=== PATIENT | male | born 1975 | race Native Hawaiian/Other Pacific Islander ===

== ENCOUNTER → 2018-05-28 | Outpatient (CLI) | payer BC, OTHER ==
[~2018-05-28] VITALS: Ht 165.1 cm; Wt 76.2 kg
[~2018-05-28] MED LIST: ASPIR 8181 MG PO; ATORVASTATIN CA40 MG PO; CHANTIX0.5 MG PO; LISINOPRIL10 MG PO; METFORMIN HCL500 MG PO; NORCO 5-325 TA1 EACH PO; PLAVIX 75 MG TA75 M1 PO
[2018-05-28 08:05] VITALS: BP 159/91
--- NOTE | 2018-05-28 13:47 | NUR ---
DR. Corral notified of pt BP. Ordred hydralazine 10 mg iv.
--- NOTE | 2018-05-28 15:02 | NUR ---
pt ambulated to restroom without difficulty. right groin remains stable
== END | disposition home or self-care (01) ==
LOC: SPEC 07:03
DX: I70.212 Atherosclerosis of native arteries of extremities with intermittent claudication, left leg (principal); I70.1 Atherosclerosis of renal artery; I10 Essential (primary) hypertension; I25.10 Atherosclerotic heart disease of native coronary artery without angina pectoris; E78.00 Pure hypercholesterolemia, unspecified; E11.9 Type 2 diabetes mellitus without complications; E78.5 Hyperlipidemia, unspecified; F17.210 Nicotine dependence, cigarettes, uncomplicated; Z79.4 Long term (current) use of insulin; Z79.899 Other long term (current) drug therapy; Z79.82 Long term (current) use of aspirin; Z98.890 Other specified postprocedural states

== ENCOUNTER → 2018-06-02 | Outpatient (CLI) | payer BC, OTHER ==
[~2018-06-02] VITALS: Ht 165.1 cm; Wt 74.8 kg
[2018-06-02 08:14] VITALS: BP 145/91
--- NOTE | 2018-06-02 08:53 | NUR ---
Notified Dr. Corral of left hip and back pain interferring with pt ability to walk. He will address.
--- NOTE | 2018-06-02 14:42 | NUR ---
Pt ambulated in hallway to restroom without difficulty. Left groin remains stable.
== END | disposition home or self-care (01) ==
LOC: SPEC 07:05
DX: I70.211 Atherosclerosis of native arteries of extremities with intermittent claudication, right leg (principal); I10 Essential (primary) hypertension; E78.00 Pure hypercholesterolemia, unspecified; E11.9 Type 2 diabetes mellitus without complications; F17.200 Nicotine dependence, unspecified, uncomplicated; Z79.4 Long term (current) use of insulin; Z98.890 Other specified postprocedural states; Z79.899 Other long term (current) drug therapy; Z79.82 Long term (current) use of aspirin; Z79.891 Long term (current) use of opiate analgesic

== ENCOUNTER 2018-12-28 04:46 | Inpatient (IN) | payer BC, OTHER ==
[2018-12-28] VITALS (14 sets, daily range): BP systolic 100–143; BP diastolic 69–88
[~2018-12-28] VITALS: Ht 165.1 cm; Wt 82.8 kg
[2018-12-28] MEDS ORDERED: XULTOPHY 100 UNI3 ML SUBQ (04:55)
[2018-12-28 05:25] LABS: ABSOLUTE NEUTROPHILS 6.9 thou/uL (1.4-8.2); BASOPHILS 1.2 % (0.0-2.0); EOSINOPHILS 3.6 % (0.0-3.0); HEMATOCRIT 39.4 % (42.0-52.0); HEMOGLOBIN 13.5 gm/dL (14.0-18.0); LYMPHOCYTES 23.4 % (24.0-44.0); MCH 31.8 pg (26.0-34.0); MCHC 34.3 g/dL (28.0-37.0); MCV 92.6 fL (80.0-100.0); MONOCYTES 7.4 % (1.0-8.0); PLATELET COUNT 294 thou/uL (150-400); POLYS 64.4 % (36.0-66.0); RBC 4.25 mil/uL (4.50-6.00); RDW 13.9 % (10.5-14.5); WBC 10.8 thou/uL (4.0-11.0)
[2018-12-28 05:27] LABS: CALCIUM 8.3 mg/dL (8.5-10.1); CREATININE 1.5 mg/dL (0.7-1.3); POTASSIUM 4.1 mmol/L (3.5-5.1)
[2018-12-28 05:38] LABS: TROPONIN-I 7.11 ng/mL (<0.06)
[2018-12-28 06:27] LABS: PROTIME 9.8 Seconds (9.3-11.4)
--- NOTE | 2018-12-28 09:03 | EKG ---
[place] [address] [facility] [place] [address] ELECTROCARDIOGRAM REPORT Name: MIN KELLY Room #: 208-P ADM IN M.R.#: [id number] Admission: 12/28/18 Attend Phys: Morro Carlson MD Discharge: Date of : 71 Report #: [id number] THIS REPORT FOR: //name// [facility] ED Test Date: 2018-12-28 Test Time: 04:49:41 Pat Name: MIN KELLY Department: Room: 208 Gender: M Clinical Rehab Specialist: YOVANA : 1975 Requested By: Weston Kumari Order Number: [id number] MD: Raz Martinez Measurements Intervals [place] Rate: 102 P: 69 AR: 151 QRS: 113 QRSD: 116 T: -25 QT: 369 QTc: 481 Interpretive Statements Sinus tachycardia Left posterior fascicular block Poor R wave progression Nonspecific ST and T wave abnormality No previous ECG available for comparison Electronically Signed On 12-28-2018 9:03:22 CDT by Raz Martinez [email or web address] <ELECTRONICALLY SIGNED> By: Raz Martinez MD, [facility] 12/28/18 0903 0449 0449 Raz Martinez MD, [facility] /EPI
--- NOTE | 2018-12-28 09:04 | EKG ---
[place] [address] [facility] [place] [address] ELECTROCARDIOGRAM REPORT Name: MIN KELLY Room #: 208-P ADM IN M.R.#: [id number] Admission: 12/28/18 Attend Phys: Morro Carlson MD Discharge: Date of : 71 Report #: [id number] THIS REPORT FOR: //name// [facility] ED Test Date: 2018-12-28 Test Time: 05:48:09 Pat Name: MIN KELLY Department: Room: 208 Gender: M Nuclear Medicine Officer: YOVANA : 1975 Requested By: Weston Kumari Order Number: [id number] MD: Raz Martinez Measurements Intervals [place] Rate: 88 P: 69 NC: 158 QRS: 111 QRSD: 111 T: 8 QT: 389 QTc: 471 Interpretive Statements Sinus rhythm Left posterior fascicular block Borderline repolarization abnormality No previous ECG available for comparison Electronically Signed On 12-28-2018 9:04:11 CDT by Raz Martinez [email or web address] <ELECTRONICALLY SIGNED> By: Raz Martinez MD, [facility] 12/28/18 0904 0548 Raz Martinez MD, [facility] /EPI
[2018-12-28 10:02] LABS: CHOLESTEROL 124 mg/dL (<200); HDL CHOLESTEROL 35 mg/dL (>40); LDL CHOLESTEROL 70 mg/dL (<100); TC:HDL 3.5 Ratio (Not establshd); TRIGLYCERIDE 95 mg/dL (<150); VLDL 19 mg/dL (<40)
--- NOTE | 2018-12-28 11:02 | NUR ---
40mg atorvastatin given. unable to scan med.
--- NOTE | 2018-12-28 15:40 | NUR ---
ASSUMED CARE OF PT AT 0800 THIS SHIFT. PT HAS BEEN COOPERATIVE, HAS HAD SOME CHEST PAIN THIS SHIFT. PT WENT TO DEHYDROGENATION CONVERTER OPERATOR THIS MORNING SHORTLY AFTER ARRIVAL ON UNIT. PT IS NOW BACK FROM DEHYDROGENATION CONVERTER OPERATOR, COOPERATING WITH BEDREST AND POST CATH VITALS. PT HAD 2 STENTS PLACED, HOWEVER WILL STILL NEED TO HAVE CABG SURGERY. PT HAD A HEADACHE AFTER COMING BACK FROM DEHYDROGENATION CONVERTER OPERATOR, ACETAMENOPHEN ORDERED. PT IS CURRENTLY RESTING COMFORTABLY IN ROOM. PLAN OF CARE IS TO CONTINUE TO MONITOR CLOSELY AT THIS TIME.
--- NOTE | 2018-12-28 15:51 | 2DMMODE ---
[facility] [address] [place] [address] 2 D/M-MODE ECHOCARDIOGRAM Name: MIN KELLY NEGRO Room #: 208-P ADM IN M.R.#: [id number] Admission: 12/28/18 Attend Phys: Klever Fitzpatrick Discharge: Date of : 71 Report #: [id number] THIS REPORT FOR: //name// APPROVED REPORT Study performed: 12/28/2018 13:31:35 EXAM: Comprehensive 2D, Doppler, and color-flow Echocardiogram Patient Location: Bedside Room #: 208 Status: routine BSA: 1.82 HR: 80 bpm BP: 119/71 mmHg Rhythm: NSR Other Information Study Quality: Technically Limited Technically limited study due to inability to position patient, post cath. Indications Diabetes Non STEMI Hypertension/HDD 2D Dimensions IVSd: 11.54 (7-11mm) LVOT Diam: 23.98 (18-24mm) LVDd: 54.90 mm PWd: 10.76 (7-11mm) Ascending Ao: 29.50 (22-36mm) LVDs: 50.10 (25-40mm) Aortic Root: 33.91 mm Volumes Left Atrial Volume (Systole) Single Plane 4CH: 37.24 mL Single Plane 2CH: 53.16 mL LA ESV Index: 27.00 mL/m2 Aortic Valve AoV Peak Winston.: 0.75 m/s AO Peak Gr.: 2.25 mmHg LVOT Max P.76 mmHg LVOT Max V: 0.43 m/s LAY Vmax: 2.[address] [facility] [address] [place] [address] 2 D/M-MODE ECHOCARDIOGRAM Name: ROBINMIN NEGRO Room #: 208-P [facility] IN [facility].#: [id number] Admission: 12/28/18 Attend Phys: Klever Fitzpatrick Discharge: Date of : 71 Report #: [id number] E/A Ratio: 1.7 MV Decel. Time: 119.60 ms MV E Max Winston.: 0.85 m/s MV A Winston.: 0.50 m/s MV PHT: 34.68 ms IVRT: 110.73 ms Pulmonary Valve PV Peak Winston.: 0.61 m/s PV Peak Gr.: 1.48 mmHg Tricuspid Valve TR Peak Winston.: 2.84 m/s RAP Estimate: 5.00 mmHg TR Peak Gr.: 32.23 mmHg PA Pressure: 37.00 mmHg Left Ventricle Left ventricle is at the upper limits of normal. Regional wall motion abnormalities are noted. Borderline concentric left ventricular hypertrophy. Left ventricular systolic function is severely decreased. LVEF is 25-30%.inf wall akinetic Right Ventricle Right ventricle appears grossly normal in size. Right ventricular systolic function is grossly normal. Atria The left atrium size is normal. Aortic Valve The aortic valve is normal in structure. No aortic regurgitation is present. There is no aortic valvular stenosis. Mitral Valve The mitral valve is normal in structure. Mild mitral regurgitation. No evidence of mitral valve stenosis. Tricuspid Valve The tricuspid valve is normal in structure. There is no tricuspid valve regurgitation noted. Pulmonic Valve The pulmonary valve is normal in structure. Trace pulmonic regurgitation. Great Vessels The aortic root is normal in size. IVC is normal in size and [facility] [address] [place] [address] 2 D/M-MODE ECHOCARDIOGRAM Name: MIN KELLY NEGRO Room #: 208- ADM IN M.R.#: [id number] Admission: 12/28/18 Attend Phys: Klever Fitzpatrick Discharge: Date of : 71 Report #: [id number] collapses >50% with inspiration. Pericardium There is no pericardial effusion. <Conclusion> Left ventricle is at the upper limits of normal. Borderline concentric left ventricular hypertrophy. LVEF is 25-30%.inf wall akinetic Right ventricle appears grossly normal in size. The left atrium size is normal. The aortic valve is normal in structure. Mild mitral regurgitation. There is no tricuspid valve regurgitation noted. The aortic root is normal in size. There is no pericardial effusion. <ELECTRONICALLY SIGNED> By: Arun Cortez MD, [facility] 12/28/18 1551 155 1551 Arun Cortez MD, [facility]ACC /INF
[2018-12-29 04:00] VITALS: BP 97/68
[2018-12-29 05:09] LABS: HEMOGLOBIN 12.6 gm/dL (14.0-18.0); MCH 31.2 pg (26.0-34.0); MCHC 33.2 g/dL (28.0-37.0); MCV 93.9 fL (80.0-100.0); RBC 4.04 mil/uL (4.50-6.00); WBC 10.4 thou/uL (4.0-11.0)
--- NOTE | 2018-12-29 05:17 | NUR ---
RECEIVED PT'S CARE AT AROUND 1910; PT. ON BED; AOX4; RELATIVE AT THE BED SIDE; DURING ASSESSMENT C/O CP; 04/02; HEADACHE; 04/02; PRN MEDICATION GIVEN; HS MEDICATION GIVEN; EDUCATED ABOUT THE IMPORTANCE OF SCDs; ST. UNDERSTANDING; REFUSED IT; AROUND 0 PT. C/O INCREASE CP (07/01) & HEADACHE (07/01); EDUCATED ABOUT MEDICATION GTT & SIDE EFFECTS; VS WNL; INCREASE NITROGLICERYN GTT; C/O INCREASE HEADACHE; DECREASE GTT TO 5 MCG/MIN; ST. DECREASE CP; INCREASE HEADACHE; ST. PRN PAIN MEDICATION DID NOT DECREASE HEADACHE; ASKED ABOUT CAFFEINE INTAKE; PT. ST TO DRINK 8 CUPS OF COFFEE PER DAY; MECHANICAL ADJUSTER NOTIFIED; ORDERS RECEIVED; COFFEE PROVIDED; DURING ROUNDINGS PT. RESTING WITH EYES CLOSED; THROUGH THE NIGHT R. SIDE GROIN D/C/I; NO C/O PAIN; EARLY ON THE MORNING NOTICED ON EMAR FUROSEMIDE PRESCRIBED WHILE NS RUNNING AT 100 ML/H; MECHANICAL ADJUSTER NOTIFIED; ORDERS RECEIVED; NS D/C; MONITORING; ASSESSMENT CHARGED; FOLLOWING POC; WILL PASS ON REPORT.
[2018-12-29 05:27] LABS: ALBUMIN 2.8 g/dL (3.4-5.0); CREATININE 1.5 mg/dL (0.7-1.3); TOTAL BILIRUBIN 0.6 mg/dL (<0.1-1.0)
[2018-12-29 05:33] LABS: TROPONIN-I 50.23 ng/mL (<0.06)
[2018-12-29 06:19] VITALS: BP 106/70
--- NOTE | 2018-12-29 07:58 | EKG ---
[place] [address] [facility] [place] [address] ELECTROCARDIOGRAM REPORT Name: MIN KELLY Room #: 211-P ADM IN M.R.#: [id number] Admission: 12/28/18 Attend Phys: Klever Yao Discharge: Date of : 71 Report #: [id number] THIS REPORT FOR: //name// [facility] Test Date: 2018-12-28 Test Time: 16:23:49 Pat Name: MIN KELLY Department: Room: 211 Gender: M Junior Paralegal: Heather WILCOX : 1975 Requested By: Arun Cortez Order Number: [id number] MD: Raz Martinez Measurements Intervals [place] Rate: 86 P: 57 IN: 151 QRS: 108 QRSD: 113 T: 77 QT: 385 QTc: 461 Interpretive Statements Sinus rhythm Left posterior fascicular block Inferior infarct, acute (RCA) Compared to ECG 12/28/2018 05:48:09 Myocardial infarct finding now present Electronically Signed On 12-29-2018 7:58:03 CDT by Raz Martinez [email or web address] <ELECTRONICALLY SIGNED> By: Raz Martinez MD, [facility] 12/29/18 0758 1623 1623 Raz Martinez MD, [facility] /EPI
--- NOTE | 2018-12-29 08:05 | EKG ---
[place] [address] [facility] [place] [address] ELECTROCARDIOGRAM REPORT Name: MIN KELLY Room #: 211-P ADM IN M.R.#: [id number] Admission: 12/28/18 Attend Phys: Klever Yao Discharge: Date of : 71 Report #: [id number] THIS REPORT FOR: //name// [facility] Test Date: 2018-12-29 Test Time: 07:47:18 Pat Name: MIN KELLY Department: Room: 211 P Gender: M Medical Equipment Repair Technician: celena : 1975 Requested By: Arun Cortez Order Number: [id number] MD: Raz Martinez Measurements Intervals [place] Rate: 82 P: 54 MI: 154 QRS: 118 QRSD: 115 T: 100 QT: 409 QTc: 478 Interpretive Statements Sinus rhythm Rightward axis Minimal inferior repolarization abnormality Compared to ECG 12/28/2018 05:48:[address] elevation is less pronounced Electronically Signed On 12-29-2018 8:05:35 CDT by Raz Martinez [email or web address] <ELECTRONICALLY SIGNED> By: Raz Martinez MD, [facility] 10/11/09 804 6 Raz Martinez MD, [facility] /EPI
[2018-12-29 08:09] VITALS: BP 115/78
[2018-12-29 12:34] VITALS: BP 94/65
[2018-12-29 15:35] LABS: URINE BILIRUBIN NEGATIVE (Negative); URINE BLOOD NEGATIVE (Negative); URINE CLARITY CLEAR; URINE COLOR YELLOW; URINE GLUCOSE-RANDOM* 3+ (Negative); URINE KETONES NEGATIVE (Negative); URINE LEUKOCYTES-REFLEX NEGATIVE (Negative); URINE NITRITE-REFLEX NEGATIVE (Negative); URINE PROTEIN (DIPSTICK) TRACE (Negative); URINE SPECIFIC GRAVITY 1.015 (1.005-1.035); URINE UROBILINOGEN 0.2 E.U./dl (0.2-1.0)
[2018-12-29 15:59] VITALS: BP 105/59
--- NOTE | 2018-12-29 17:22 | CATHLAB ---
[facility] [address] [place] [address] INVASIVE PROCEDURE REPORT Name: MIN KELLY Room #: 211-P [facility] IN .R.#: [id number] Admission: 12/28/18 Attend Phys: Klever Fitzpatrick Discharge: Date of : 71 Report #: [id number] THIS REPORT FOR: //name// APPROVED REPORT Study performed: 12/28/2018 10:18:40 Patient Details The patient is a 43 year-old male Event Personnel Arun Cortez Graphic Specialist, Evelia Peace RN RN, Chester Reza RTR Scrub, Mickey Capps, Analisa Cortes RTR Monitor, Roxanne Arreguin RTR, STOCK CRANE OPERATOR Monitor Procedures Performed Art Access - R femoral artery* Henry Access - R femoral vein Right and Left Heart Cath w/or w/o Coronarie [id number] [facility] Place w/wo Plasty Single CIRC [id number] 40169 Initial Mod Sed Same Phys/QHP Gr5y 043007 22909 Mod Sed Same Phys/QHP Ea 376006 Hemostasis w/ Mynx Hemostasis with Manual pressure Indication Chest pain Procedure Narrative The Right Groin^ was infiltrated with 1% Lidocaine subcutaneous anesthesia. A Right Heart Catheterization was performed with a 7 Fr. [place]-Chris catheter and pressure were recorded. Cardiac outputs were obtained by the Thermal Dilution method. A PINNACLE 6FR Sheath #[id number] sheath was inserted into the RFA^. Coronary angiography was performed using coronary diagnostic catheters. The right coronary system was accessed and visualized with a JR4 catheter. The left coronary system was accessed and visualized with a JL4 catheter. The left ventricle was accessed and visualized with a Pigtail catheter. Closure device was deployed with a Fr Mynx. Hemostasis was obtained with manual pressure following sheath removal without any complications. The patient tolerated the procedure well and there were no complications associated with the procedure. There was no hematoma. Intraoperative Conscious Sedation Sedation start time: 1143 Case end Time: 1316 Fentanyl 125 mcg Versed [address] [address] INVASIVE PROCEDURE REPORT Name: MIN KELLY NEGRO Room #: 211-P [facility] IN ..#: [id number] Admission: 12/28/18 Attend Phys: Klever Fitzpatrick Discharge: Date of : 71 Report #: [id number] Fluoro Time: 14.32 minutes Dose: DAP 40216.20 cGycm2 2316 mGy Contrast Type and Amount: Visipaque 185 ml IVUS Findings Sprinter OTW 2.25 x 15 #[id number] Hemodynamics The right atrial mean pressure is 15 mmHg. The right ventricular pressure is 53/13 mmHg. The pulmonary artery pressure is 52/23 mmHg with a mean of 38 mmHg. The mean pulmonary capillary wedge pressure is 28 mmHg. The aortic pressure is 125/81 mmHg with a mean of 99 mmHg. The left ventricular pressure is 142/24 mmHg with a mean of mmHg. The left ventricular end diastolic pressure is 43 mmHg. The cardiac output using thermo method is 3.55 L/min. The cardiac index using thermo method is 1.95 L/min/m2. PCI Technique Lesion Percutaneous coronary intervention was performed on the mid circumflex artery segment. A LAUNCHER 6FR EBU 3.5 #[id number] Guide Catheter was used to engage the ostium. A Luge Wire .014 x 182CM #[id number] Interventional Guidewire was used to cross the lesion. BALLOON DILATION A Balloon catheter Sprinter OTW 2.0 x 15 #[id number] was inserted and inflated up to 10.00atm for 10seconds. Additional Inflation: 14.00atm for 16seconds. Additional Inflation: 14.00atm for 14seconds. STENT DEPLOYMENT A drug-eluting stent RESOLUTE CHRISTINE OTW 2.25 X 30 #[id number] was inserted and inflated up to 10.00atm for 22seconds. Additional Inflation: 14.00atm for 19seconds. BALLOON DILATION A Balloon catheter Sprinter OTW 2.25 x 15 #[id number] was inserted and inflated up to 8.00atm for 18seconds. Additional Inflation: 10.00atm for 16seconds. Additional Inflation: 14.00atm for 19seconds. STENT DEPLOYMENT A drug-eluting stent RESOLUTE CHRISTINE OTW 2.5 X 18 #[id number] was inserted and inflated up to 18.00atm for 25seconds. Additional Inflation: 12.00atm for 17seconds. Conclusion [facility] [address] [email or web address] [address] INVASIVE PROCEDURE REPORT Name: MIN KELLY Room #: 211-P ADM IN M.R.#: [id number] Admission: 12/28/18 Attend Phys: Klever Fitzpatrick Discharge: Date of : 71 Report #: [id number] #1 mildly dilated left ventricle with the mid to distal inferior wall akinetic moderate hypokinesis otherwise noted ejection fraction 30% range. #2 the circumflex OM I perceived to be the culprit for the non-STEMI. There is staining of the first OM and then the distal OM system is subtotally occluded. Was able to eventually dilate and stent 2 to this segment with mu-ism of JOAN grade 1 flow and improved collateral filling to the first OM #3 the left main is large and fairly well preserved giving rise to the LAD and the circumflex vessel #4 LAD high-grade proximal disease 80-90% long lesion then filling a severe severely at least moderate to severely diffusely diseased LAD diagonal which extends around the apex. A definite diabetic-appearing vessel. #5 dominant right with high-grade eccentric disease then totally occluded at the distal third with extensive fine collateral filling and blush of the inferior wall. This appears to be more chronic than acute. Inferior wall is also akinetic on LV gram. #6 successful right heart catheterization with hemodynamics above significant volume overload. Recreations and plan: Continue aggressive risk factor modifications aggressive diuresis is been instituted. I don't see a clear evidence for continued intervention. We'll proximal LAD is certainly a possible target. The dominant right appears to be chronic. These or not good targets for revascularization but certainly need optimization of medical therapy and CV surgical consultation. Complex anatomy long-standing diseased disease diabetic is quite evident further recommendations to follow <ELECTRONICALLY SIGNED> By: Arun Cortez MD, [facility] 12/29/181721 21 1722 Arun Cortez MD, FACC /INF
[2018-12-29 19:58] VITALS: BP 101/62
--- NOTE | 2018-12-30 03:44 | NUR ---
PT ALERT AND ORIENTED. NO C/O CHEST PAIN, NAUSEA, OR VOMITING. HAD A MILD FEVER OF 100.1 AT THE BEGINNING BUT RECHECK TEMP WAS 98.5. CONTINUE WITH LASIX TO IMPROVE FLUID STATUS PRIOR TO CABG. DENIES ANY OTHER CONCERN AND CURRENT VITALS STABLE. EVEN LISINOPRIL HELD DUE TO LOW BP. PT REMAINED ASYMPTOMATIC. DENIES ANY SUICIDE IDEATIONS. PT CURRENTLY IN A STABLE CONDITION. WILL CONTINUE WITH CURRENT PLAN OF CARE.
[2018-12-30 04:44] VITALS: BP 99/66
[2018-12-30 04:46] LABS: CALCIUM 8.4 mg/dL (8.5-10.1); CREATININE 1.8 mg/dL (0.7-1.3); POTASSIUM 3.7 mmol/L (3.5-5.1)
[2018-12-30 06:11] LABS: GLYCOHEMOGLOBIN (HGB A1C) 5.9 % (4.8-5.6)
[2018-12-30 07:54] VITALS: BP 106/73
--- NOTE | 2018-12-30 08:16 | HC ---
[facility] [place] [address] CONSULTATION Name: MIN KELLY Room #: 211-P ADM IN M.R.#: [id number] Admission: 12/28/18 Attend Phys: Klever Yao Discharge: Date of : 71 Report #: [id number] THIS REPORT FOR: //name// CC: Patricio Yao DATE OF SERVICE: 12/28/2018 ENDOCRINE CONSULTATION NOTE CONSULTING PHYSICIAN: Dr. Cortez. REASON FOR CONSULTATION: Type 2 diabetes mellitus. HISTORY OF PRESENT ILLNESS: The patient is a 43-year-old male patient with medical background that is significant for long history of type 2 diabetes mellitus, hypertension, hyperlipidemia as well as significant peripheral vascular disease, warranting multiple stent placements in both lower extremities in May 2018. The patient presented earlier today to [facility] ED with complaints of chest pain and shortness of breath. He was then found to have sustained a STEMI and underwent a coronary angiogram, which concluded that he would likely need an open heart surgery for CABG. The patient notes that he had first found out about having diabetes at the age of 27 years. He acknowledges that his baseline control had been fairly poor with an A1c of 14% in the recent past. He then went on to work with Dr. Patricio Jim at [facility] who had started the patient on Xultophy at a dose of 28 units daily in addition to metformin 500 mg b.i.d. The patient notes that his blood glucose values have regulated rather well on this regimen with his fasting blood glucose values running in the 80-100 mg/dL range and with his A1c running at 6.5% as of a month ago during a recent followup with Dr. Jim. The patient is not aware as to whether or not he has diabetic retinopathy, but acknowledges that he does not pursue routine eye examinations. The patient does not have a history of diabetic nephropathy, but he has been recently bothered by a diabetic neuropathy in the form of numbness and tingling that has somewhat bothered his ambulation and gait over the past few months. He is not currently on active therapy for this. The patient is also known to have hypertension, hyperlipidemia and is on active therapy for both. REVIEW OF SYSTEMS: CONSTITUTIONAL: No fever or chills, significant body weight changes, but has [facility] [address] [place] [address] CONSULTATION Name: MIN KELLY NEGRO Room #: [address] [place] [address] IN M.R.#: [id number] Admission: 12/28/18 Attend Phys: Klever Yao Discharge: Date of : 71 Report #: [id number] been somewhat fatigued. HEENT: Negative for sore throat, sinus pain or ear drainage. PULMONARY: Shortness of breath on exertion, intermittent cough, but no hemoptysis. CARDIAC: Chest pain, intermittent palpitations, dyspnea on exertion, but not lower extremity edema. GASTROINTESTINAL: Abdominal discomfort, nausea, but no vomiting. MUSCULOSKELETAL: Lower extremity weakness, pain, no arthralgia, no deformities. HEMATOLOGY: Negative for bruising or bleeding tendencies. NEUROLOGY: Negative for loss of consciousness, seizures, or frequent severe headaches, but noted for peripheral neuropathy changes as mentioned in HPI. PSYCHIATRIC: Negative for hallucinations or delusions. Otherwise, review of systems noncontributory other than those mentioned in HPI. PAST MEDICAL HISTORY: 1. Type 2 diabetes mellitus. 2. Hypertension. 3. Hyperlipidemia. 4. Peripheral arterial disease, status post stent placements x 3, in both lower extremities in May 2018. 5. Coronary artery disease with AL recorded earlier today. 6. Obesity. 7. Diabetic neuropathy. ACTIVE OUTPATIENT MEDICATIONS: Include Xultophy at dose of 28 units daily, metformin 500 mg b.i.d., atorvastatin 40 mg daily, aspirin 81 mg daily, Plavix 75 mg daily, lisinopril 10 mg daily. ALLERGIES: No known drug allergies. FAMILY HISTORY: Unknown. SOCIAL HISTORY: , has 4 children. 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 Drinks alcohol only rarely. PHYSICAL EXAMINATION: GENERAL: Pleasant, pacific-islander male patient who is not in apparent pain or distress. VITAL SIGNS: Blood pressure is 127/86 mmHg, heart rate is 89 beats per minute, respirations 16 per minute, temperature 36.6 degrees. CONSTITUTIONAL: Lies in bed, appears comfortable, but a bit anxious, but not in apparent distress. HEENT: Anicteric sclerae. Intact extraocular motions. NECK: Supple, without JVD, carotid bruits or lymphadenopathy. I do not appreciate thyromegaly. CHEST: Noted for good air entry bilaterally without wheeze or crackles. [facility] [address] [place] [address] CONSULTATION Name: MIN KELLY Room #: 211-P [facility] IN M.R.#: [id number] Admission: 12/28/18 Attend Phys: Klever Yao Discharge: Date of : 71 Report #: [id number] HEART: Regular rate and rhythm without murmurs or gallops. ABDOMEN: Soft and lax without tenderness or organomegaly, has active bowel sounds. EXTREMITIES: Lower extremity exam is negative for ankle edema. No skin breaks, ulcerations or other deformities. Pedal pulses are appreciated and are faint over both feet. Sensation to light touch is moderately diminished. NEUROLOGIC: Awake, alert and oriented to time, place and person. The remainder of examination is nonfocal other than for the lower extremity sensory deficits. PSYCHIATRIC: Awake, alert, oriented, pleasant, interactive, appropriate. Normal mood and affect. SKIN: No rash, ulceration or other major deformities. LABORATORY DATA: Blood glucose on arrival was 84, close to this report. It was measured at 191 mg/dL by the patient's report. Hemoglobin A1c about a month ago was 6.5%. Sodium 139, potassium 4.1, chloride 104, CO2 of 24, anion gap 11, BUN 34, creatinine 1.5, glucose 137, calcium 8.3, GFR 51. Troponin 7.11, total cholesterol 124, triglycerides 95, HDL 35, LDL 70, VLDL 19. INR 1.0. White blood count 10.8, hemoglobin 13.5, hematocrit 39.4, platelets 294. ASSESSMENT AND PLAN: 1. Type 2 diabetes mellitus. As noted above, the patient had a dramatic transformation in the level of his control over the past several months, having worked with Dr. Jim on this. He seems to have achieved a fair amount of success on the stated regimen of Xultophy and metformin judging by his reported blood glucose values and reported hemoglobin A1c. Given the coronary angiogram that was carried on or carried out earlier today, metformin will have to be held. Moreover, if open heart surgery were to happen in the next few days, I would rather for the patient to be in a basal bolus regimen until he has fully recovered. Additionally, Xultophy is not on formulary at [facility]. That said, I will instead resort to a combination of Lantus insulin at a dose of 24 units q.p.m. in addition to linagliptin 5 mg daily while supporting the patient to the Humalog supplemental scale with blood glucose monitoring a.c. and at bedtime. Additional modifications to this regimen will take place as per his recorded blood glucose values. I suspect his p.o. intake will be significantly inconsistent going forward given the anticipated surgical intervention. While the patient is fairly adequately controlled on the current antidiabetic regimen, he might be a good candidate for SGLT2 inhibitors given the documentation of CAD. I will consider this further when the patient is stable and ready for discharge. 2. Hyperlipidemia. The patient's level of lipid control is adequate, but perhaps could stand to improve that given the currently diagnosed coronary artery disease with a target LDL cholesterol to be pursued at 55 mg/dL or less. 3. Hypertension. The patient's level of blood pressure control is adequate on the current regimen. He is to continue the same. 4. Coronary artery disease. As noted above, the patient was recorded as having an AL earlier today, which was not amenable to angiogram based intervention. [address] [address] CONSULTATION Name: ROBINMIN NEGRO Room #: 211-P [facility] IN M.R.#: [id number] Admission: 12/28/18 Attend Phys: Klever Yao Discharge: Date of : 71 Report #: [id number] The patient will be evaluated by Cardiothoracic Surgery shortly. Dr. Cortez is following the patient closely. 5. Diabetic neuropathy. I counseled the patient about this issue at length and I explained that we do indeed see patient to improve their neuropathic symptoms as their blood glucose control improved significantly as he did. I noted that while it was reasonable to wait for such improvement to take place that if such symptoms persist in the next several weeks to few months to discuss this further with Dr. Jim during future office followup with him. Of note, I greatly appreciate this consultation by Dr. Cortez, it is certainly a pleasure to participate in the care of his patient and Dr. Jim's patient. <ELECTRONICALLY SIGNED> By: Jarrett San MD 12/30/18 0816 [id number] [id number] Jarrett San MD /nt
[2018-12-30 11:59] VITALS: BP 100/67
[2018-12-30 15:32] VITALS: BP 133/71
--- NOTE | 2018-12-30 15:37 | NUR ---
met with patient and family at bedside. patient admits with CP. 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 Gave patient letter to verify he is here at [facility]. Patient reports supportive family. Patient has health insurance and anticipate no needs at or.
--- NOTE | 2018-12-30 17:00 | NUR ---
PT CARE ASSUMED APPROX 0700. PT ALERT AND ORIENTED X4. DENIES PAIN AND SOA. VSS. FAMILY AT BEDSIDE ALL OF SHIFT. DRs ROUNDED PT AND FAMILY DENIED QUESTIONS OR CONCERNS REGARDING POC. PT BS WNL. UP AD LANDEN WITH STEADY GAIT. TOLERATING POC. NO DISTRESS NOTED.
[2018-12-30 19:47] VITALS: BP 99/64
[2018-12-31 03:19] VITALS: BP 98/66
[2018-12-31 05:23] LABS: HEMATOCRIT 35.1 % (42.0-52.0); HEMOGLOBIN 12.1 gm/dL (14.0-18.0); MCH 31.6 pg (26.0-34.0); MCHC 34.5 g/dL (28.0-37.0); MCV 91.7 fL (80.0-100.0); RBC 3.83 mil/uL (4.50-6.00); RDW 13.7 % (10.5-14.5); WBC 9.5 thou/uL (4.0-11.0)
[2018-12-31 05:48] LABS: CALCIUM 8.3 mg/dL (8.5-10.1); CREATININE 1.6 mg/dL (0.7-1.3); POTASSIUM 3.7 mmol/L (3.5-5.1)
--- NOTE | 2018-12-31 06:21 | NUR ---
A&O, calm and cooperative; denied chest pain, denied n/v. 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 : 1.6 this AM. BG in control.
[2018-12-31 07:47] VITALS: BP 119/78
[2018-12-31] MEDS ORDERED: IMDUR 30 MG TAB30 M1 PO (08:00)
[2018-12-31] MEDS ORDERED: ASPIRIN325 PO (08:00)
[2018-12-31] MEDS ORDERED: K-DUR 20 MEQ T20 MEQ PO (08:00)
[2018-12-31] MEDS ORDERED: DEMADEX20 MG PO (08:00)
[2018-12-31] MEDS ORDERED: LISINOPRIL5 MG PO (08:00)
[2018-12-31] MEDS ORDERED: COREG6.25 MG PO (08:00)
[2018-12-31] MEDS ORDERED: EFFIENT10 MG PO (08:00)
[2018-12-31] MEDS ORDERED: TRADJENTA5 MG PO (09:17)
[2018-12-31] MEDS ORDERED: LANTUS SUBQ (09:18)
[2018-12-31] MEDS ORDERED: HUMALOG100 UNIT/1 SUBQ (09:18)
[2018-12-31 09:58] VITALS: BP 119/78
--- NOTE | 2018-12-31 11:12 | NUR ---
ASSUMED PT CARE AT APPROXIMATELY 0700. PT A&O X4. ASSESSMENT CHARTED. FALL PRECAUTIONS IN PLACE. VITAL SIGNS STABLE. BLOOD SUGARS STABLE. PT AMBULATES STEADY/INDEPENDENT. TELE DC. IV DC. PT DISCHARGING HOME WITH FAMILY. PT AND FAMILY EDUCATED WITH DISCHARGE EDUCATION. PT AND FAMILY STATED UNDERSTANDING WITHOUT HAVING FURTHER QUESTIONS. PT STATED HE DID NOT HAVE CHEST PAIN. PT STATED HE WAS NOT SOB. PT STATED HE DID NOT HAVE ACUTE PAIN. HOSPITAL TRANSPORT IS TAKING PT OFF UNIT. PT LEFT UNIT AT APPROXIMATELY 1100. PT DENIED HAVING FURTHER CONCERNS.
--- NOTE | 2018-12-31 13:11 | HC ---
[facility] [place] [address] CONSULTATION Name: MIN KELLY Room #: 211-P [facility] IN M.R.#: [id number] Admission: 12/28/18 Attend Phys: Klever Yao Discharge: 12/31/18 Date of : 71 Report #: [id number] THIS REPORT FOR: //name// CC: Laura Yao DATE OF SERVICE: 12/30/2018 We were asked by Dr. Cortez to see the patient in consultation. HISTORY OF PRESENT ILLNESS: The patient is a 43-year-old who was admitted on 12/28/2018. The patient states that he woke up at 3:00 in the morning with shortness of breath. In association, there was some chest pain or pressure and the shortness of breath led him to come into the Emergency Department. The patient states that he has not had these symptoms previously. We note history of peripheral arterial occlusive disease with stent placement in May of this year. The patient was scheduled for a nuclear stress test on the day of admission, but obviously this changed with the new symptoms. PAST MEDICAL HISTORY: Also significant for hypertension, hypercholesterolemia, diabetes mellitus type 2 and tobacco use, at least up until the time of the stent. MEDICATIONS AT HOME: Include insulin, lisinopril, atorvastatin, metformin, aspirin, and Plavix. ALLERGIES: None known. SOCIAL HISTORY: As mentioned, tobacco use in the past. FAMILY HISTORY: Denies family history of precocious coronary disease. REVIEW OF SYSTEMS: CONSTITUTIONAL: Negative for fever or chills. EYES: Negative for eye pain or visual change. HEENT: Negative for rhinorrhea or sore throat. RESPIRATORY: As mentioned, shortness of breath was an acute presenting symptom. CARDIAC: As mentioned, chest pain was an acute presenting symptom. No palpitations. GASTROINTESTINAL: Negative for nausea, vomiting, diarrhea or abdominal pain. GENITOURINARY: Negative for burning, frequency, urgency. MUSCULOSKELETAL: Negative for bone or joint pain. SKIN: Negative for rash or infection. NEUROLOGIC: Negative for motor or sensory dysfunction. ENDOCRINE: Negative for goiter or tremor. [facility] [address] [place] [address] CONSULTATION Name: ROBINMIN NEGRO Room #: 211-P [facility] IN M.R.#: [id number] Admission: 12/28/18 Attend Phys: Klever Yao Discharge: 12/31/18 Date of : 71 Report #: [id number] HEMATOLOGIC AND LYMPHATIC: Negative for easy bleeding or bruisability. PHYSICAL EXAMINATION: GENERAL: The patient is lying in bed. VITAL SIGNS: Temperature 37.1, pulse rate 89, respiratory rate 18, blood pressure 106/73, O2 sat 98 on room air. HEENT: Normocephalic. Pupils are round, equal. No icterus, no arcus. NECK: No mass, no bruit. CHEST: Clear to auscultation. HEART: Rhythm regular, no murmur. ABDOMEN: Soft, no mass or tenderness. SKIN: No rash or infection. NEUROLOGIC: No motor or sensory dysfunction. VASCULAR: No obvious saphenous vein problems 1+ right popliteal pulse. I do not feel left popliteal pulse. IMPRESSION: The patient has severe 3-vessel coronary disease. I have reviewed the catheterization and there was high-grade proximal disease in LAD and circumflex. The circumflex was stented, but flow is still slow. There is also a predominance of distal disease. Left ventriculogram shows reduced function with inferior akinesis. In total, there is severe 3-vessel coronary disease and the patient has diabetes mellitus, but the predominance of distal disease makes the patient a poor candidate for successful revascularization. I understand that there may not be other good options, but angioplasty of the proximal LAD and circumflex lesions would be at least as good as bypass surgery, as both will be limited by the daunting distal disease. I will be happy to review the case with Dr. Cortez and with the patient and his family, but at this point, I have no plans to proceed with surgery. Thank you for the consult. <ELECTRONICALLY SIGNED> By: Andrei Reyes MD 12/31/18 1311 0822 0003 Andrei Reyes MD /nt
== END 2018-12-31 11:12 | disposition home or self-care (01) | DRG 247 ==
LOC: ER 04:46 → EROBS 06:28 → 2N 06:28 → ENTRNSPT 12-31 10:56 → EDTRNSPTSTS 12-31 11:02 → 2N 12-31 11:12
PROVIDERS: Emergency Medicine; Internal Medicine Cardiovascular Disease; Nurse Practitioner Adult Health; Surgery Vascular Surgery; ADMIT Hospitalist
PROC: 4A023N8 Measurement of Cardiac Sampling and Pressure, Bilateral, Percutaneous Approach (ICD-10-PCS; principal; 2018-12-29)
PROC: 027035Z Dilation of Coronary Artery, One Artery with Two Drug-eluting Intraluminal Devices, Percutaneous Approach (ICD-10-PCS; principal; 2018-12-29)
PROC: B211YZZ Fluoroscopy of Multiple Coronary Arteries using Other Contrast (ICD-10-PCS; principal; 2018-12-29)
DX: I21.4 Non-ST elevation (NSTEMI) myocardial infarction (principal); N17.9 Acute kidney failure, unspecified; E78.00 Pure hypercholesterolemia, unspecified; E11.51 Type 2 diabetes mellitus with diabetic peripheral angiopathy without gangrene; E78.5 Hyperlipidemia, unspecified; I25.10 Atherosclerotic heart disease of native coronary artery without angina pectoris; E66.9 Obesity, unspecified; I70.1 Atherosclerosis of renal artery; I65.22 Occlusion and stenosis of left carotid artery; I12.9 Hypertensive chronic kidney disease with stage 1 through stage 4 chronic kidney disease, or unspecified chronic kidney disease; E11.22 Type 2 diabetes mellitus with diabetic chronic kidney disease; N18.9 Chronic kidney disease, unspecified; I25.5 Ischemic cardiomyopathy; Z86.718 Personal history of other venous thrombosis and embolism; Z87.891 Personal history of nicotine dependence; Z68.30 Body mass index [BMI] 30.0-30.9, adult; Z71.6 Tobacco abuse counseling; Z82.49 Family history of ischemic heart disease and other diseases of the circulatory system
CPT/HCPCS: 10081

== ENCOUNTER 2019-01-22 12:43 | Inpatient (IN) | payer BC, OTHER ==
[2019-01-22] VITALS (15 sets, daily range): BP systolic 100–139; BP diastolic 67–81
[~2019-01-22] VITALS: Ht 165.1 cm; Wt 76.7 kg
[~2019-01-22 12:43] MED LIST changes: +ASPIRIN325 PO; +COREG6.25 MG PO; +DEMADEX20 MG PO; +EFFIENT10 MG PO; +HUMALOG100 UNIT/1 SUBQ; +IMDUR 30 MG TAB30 M1 PO; +K-DUR 20 MEQ T20 MEQ PO; +LANTUS SUBQ; +LISINOPRIL5 MG PO; +TRADJENTA5 MG PO; +XULTOPHY 100 UNI3 ML SUBQ
[2019-01-22 13:32] LABS: ABSOLUTE NEUTROPHILS 7.5 thou/uL (1.4-8.2); BASOPHILS 1.3 % (0.0-2.0); EOSINOPHILS 7.9 % (0.0-3.0); HEMATOCRIT 42.2 % (42.0-52.0); HEMOGLOBIN 14.2 gm/dL (14.0-18.0); LYMPHOCYTES 20.1 % (24.0-44.0); MCH 30.8 pg (26.0-34.0); MCHC 33.7 g/dL (28.0-37.0); MCV 91.5 fL (80.0-100.0); PLATELET COUNT 286 thou/uL (150-400); POLYS 64.7 % (36.0-66.0); RBC 4.62 mil/uL (4.50-6.00); RDW 13.2 % (10.5-14.5); WBC 11.6 thou/uL (4.0-11.0)
--- NOTE | 2019-01-22 14:06 | NUR ---
PT IS A DIRECT ADMIT FROM TOM OFFICE. HE WENT TO HAVE HIS BLOOD DRAWN. AND HIS LEFT LEG IS COLD TO TOUCH. REPORTS HE HAD A ULTRASOUND DONE AT THE OFFICE. AND REPORTS SOME PAIN NOTED IN LEFT LEG AT TIMES NONE NOW HE REPORTS. AT BEDSIDE FOR SUPPORT. COSENT OBTAINED FOR AORTOGRAM WITH THROMBOLYSIS ON THE CHART. LABS SENT AND IV STARTED UPON ARIVAL IN ICU UNIT. VS STABLE. WILL CONTINUE TO ASSESS AND MONITOR PER NURSING
[2019-01-22 14:49] LABS: CALCIUM 9.4 mg/dL (8.5-10.1); CREATININE 1.8 mg/dL (0.7-1.3); POTASSIUM 4.8 mmol/L (3.5-5.1)
[2019-01-22] MEDS ORDERED: XULTOPHY 100 UNI3 ML SUBQ (14:50)
[2019-01-22] MEDS ORDERED: DEMADEX20 MG PO (17:06)
--- NOTE | 2019-01-22 23:43 | NUR ---
1899 RECEIVED REPORT FROM JOHN AND ASSUMED PATIENT CARE. [address] KELLEY AND EXPRESSED CONCERNS THAT PATIENT DOES NOT HAVE A PEDAL PULSE TO BE FOUND WITH THE DOPPLER AND THAT 4 RN'S TRIED TO FIND A PEDAL PULSE AND 1 RN HAD FOUND A TIBIAL PULSE USING THE DOPPLER. ALSO, RELAYED RELAYED TO DR. KELLEY THAT THE PATIENT AT THE BEGINNING OF THE SHIFT WAS IN TRIGEMINY BUT HE HAD CONVERTED TO NSR WITH AN OCCASIONAL PVC. DR KELLEY STATED THAT A PULSE WOULD BE HARD TO FIND WITH HAVING PVD AND TO CONTINUE WITH THE DISCHARGE SCHEDULED. 2334 PATIENT DISCHARGED AND TAKEN DOWN BY WHEELCHAIR TO MEET SPOUSE OUTSIDE THE ED.
== END 2019-01-22 23:45 | disposition home or self-care (01) | DRG 301 ==
LOC: ICU 12:43
PROVIDERS: Nurse Practitioner Adult Health; ADMIT Internal Medicine Cardiovascular Disease
PROC: B41D1ZZ Fluoroscopy of Aorta and Bilateral Lower Extremity Arteries using Low Osmolar Contrast (ICD-10-PCS; principal; 2019-01-22)
PROC: B4181ZZ Fluoroscopy of Bilateral Renal Arteries using Low Osmolar Contrast (ICD-10-PCS; principal; 2019-01-22)
PROC: B41C1ZZ Fluoroscopy of Pelvic Arteries using Low Osmolar Contrast (ICD-10-PCS; principal; 2019-01-22)
DX: E11.51 Type 2 diabetes mellitus with diabetic peripheral angiopathy without gangrene (principal); I70.212 Atherosclerosis of native arteries of extremities with intermittent claudication, left leg; I25.10 Atherosclerotic heart disease of native coronary artery without angina pectoris; E78.5 Hyperlipidemia, unspecified; I25.5 Ischemic cardiomyopathy; I70.1 Atherosclerosis of renal artery; I25.2 Old myocardial infarction; Z79.84 Long term (current) use of oral hypoglycemic drugs; Z79.899 Other long term (current) drug therapy
CPT/HCPCS: 10078

== ENCOUNTER 2019-03-10 06:20 | Observation (INO) | payer BC, OTHER ==
[2019-03-10] VITALS (14 sets, daily range): BP systolic 84–128; BP diastolic 56–81
[~2019-03-10] VITALS: Ht 165.1 cm; Wt 85.0 kg
[2019-03-10 07:16] LABS: CALCIUM 9.6 mg/dL (8.5-10.1); CREATININE 1.7 mg/dL (0.7-1.3); POTASSIUM 4.7 mmol/L (3.5-5.1)
--- NOTE | 2019-03-10 08:14 | EKG ---
[place] [address] [place] [address] ELECTROCARDIOGRAM REPORT Name: MIN KELLY Room #: [facility]#: [id number] Admission: 03/10/19 Attend Phys: Arun Cortez MD, Discharge: Date of : 71 Report #: [id number] THIS REPORT FOR: //name// [facility] Test Date: 2019-03-10 Test Time: 07:02:12 Pat Name: MIN KELLY Department: Room: Gender: M Campground Attendant: Amanda MAN : 1975 Requested By: Arun Cortez Order Number: [id number] MD: Raz Martinez Measurements Intervals [place] Rate: 80 P: 17 NC: 159 QRS: 109 QRSD: 102 T: 109 QT: 397 QTc: 458 Interpretive Statements Sinus rhythm Small inferior Q waves Nonspecific T wave abnormality Compared to ECG 12/29/2018 07:47:18 inferior repolarization abnormality is less prominent Electronically Signed On 03-10-2019 8:13:34 SOUNDING DEVICE OPERATOR by Raz Martinez [email or web address] <ELECTRONICALLY SIGNED> By: Raz Martinez MD, [facility] 03/10/1913 1 1 Raz Martinez MD, [facility] /EPI
--- NOTE | 2019-03-10 18:49 | NUR ---
ASSUMMED PT CARE AT APPROXIMATELY 1000. PT A&O X4. ASSESSMENT CHARTED. FALL PRECAUTIONS IN PLACE. PT DENIES HAVING CHEST PAIN. PT DENIES HAVING SOB. PT DENIES HAVING ACUTE PAIN. PT RECEIVED ONE STENT IN HIS PROXIMAL LAD. PT POST PROCEDURAL VITAL SIGNS COMPLETE. PT VITAL SIGNS STABLE. PT L GROIN C/D/I. NO HEMATOMA. PT AMBULATES STEADY/INDEPENDENT. PT AND PT'S FAMILY EDUCATED ABOUT POC. PT AND PT'S FAMILY STATED UNDERSTANDING AND DENIED HAVING FURTHER QUESTIONS. ADMISSION COMPLETE. PT COMFORTABLE IN BED. PT DENIES HAVING FURTHER CONCERNS AT THIS TIME.
--- NOTE | 2019-03-11 01:32 | NUR ---
ASSESSMENTS CHARTED, MEDS GIVEN CHARTED. PATIENT WENT TO INDEPENDENT LIVING SPECIALIST DURING DAY, RECEIVED STENT TO PROX LAD. AT START OF SHIFT, LEFT GROIN DRESSING HAD A SMALL DRAINAGE PATCH, PERIMETERS MARKED AND PATIENT WAS ASKED TO STAY IN BED UNLESS NECESSARY. PATIENT DENIES PAIN. UP AT LANDEN TO BATHROOM. PLAN OF CARE IS TO GO HOME TOMORROW AND DO A RIGHT LEG RUN OFF NEXT WEEK TO PREVENT PATIENT RECEIVING TOO MUCH CONTRAST WITH AN ELEVATED CREATININE AND BUN.
[2019-03-11 03:42] VITALS: BP 129/70
[2019-03-11 05:22] LABS: HEMATOCRIT 38.1 % (42.0-52.0); HEMOGLOBIN 12.8 gm/dL (14.0-18.0); MCH 31.2 pg (26.0-34.0); MCHC 33.6 g/dL (28.0-37.0); RBC 4.1 mil/uL (4.50-6.00); RDW 13.3 % (10.5-14.5); WBC 8.2 thou/uL (4.0-11.0)
[2019-03-11 05:49] LABS: ALBUMIN 3.6 g/dL (3.4-5.0); CALCIUM 8.7 mg/dL (8.5-10.1); CREATININE 1.6 mg/dL (0.7-1.3); POTASSIUM 4.1 mmol/L (3.5-5.1); TOTAL BILIRUBIN 0.3 mg/dL (<0.1-1.0); TROPONIN-I 0.2 ng/mL (<0.06)
[2019-03-11 07:32] VITALS: BP 124/72
[2019-03-11 09:11] VITALS: BP 124/72
--- NOTE | 2019-03-11 09:47 | EKG ---
[place] [address] [facility] [place] [address] ELECTROCARDIOGRAM REPORT Name: MIN KELLY Room #: 214-P [facility] M.R.#: [id number] Admission: 03/10/19 Attend Phys: Arun Cortez MD, Discharge: Date of : 71 Report #: [id number] THIS REPORT FOR: //name// [facility] Test Date: 2019-03-11 Test Time: 07:21:30 Pat Name: MIN KELLY Department: Room: 214 P Gender: M Visual Merchandising Specialist: Amanda MAN : 1975 Requested By: Arun Cortez Order Number: [id number] MD: Raz Martinez Measurements Intervals [place] Rate: 68 P: 14 GA: 165 QRS: 104 QRSD: 107 T: 101 QT: 428 QTc: 456 Interpretive Statements Sinus rhythm Inferior infarct, old Compared to ECG 03/10/2019 07:02:12 No significant change was found Electronically Signed On 03-11-2019 9:46:56 DIRECTOR COLLEGE by Raz Martinez [email or web address] <ELECTRONICALLY SIGNED> By: Raz Martinez MD, [facility] 03/11/19 0946 0 0 Raz Martinez MD, [facility] /EPI
--- NOTE | 2019-03-11 11:40 | NUR ---
PT CARE ASSUMED APPROX 0700. DISCHARGED AT THIS TIME. DENIES PAIN AND SOA. VSS. LEFT GROIN STABLE. DISCHARGE EDUCATION REVIEWED WITH PT BY THIS NURSE AND CV WARP WORKER. PT DENIES QUESTIONS OR CONCERNS REGARDING POCT HOSPITAL CARES. IV OUT. TELE OFF. PT ESCORTED OUT BY HOSPITAL STAFF.
--- NOTE | 2019-03-11 16:57 | CATHLAB ---
[facility] [place] [employer] [address] INVASIVE PROCEDURE REPORT Name: MIN KELLY Room #: 214-P [facility] IN M.R.#: [id number] Admission: 03/10/19 Attend Phys: Arun Cortez, Discharge: 03/11/19 Date of : 71 Report #: [id number] THIS REPORT FOR: //name// APPROVED REPORT Study performed: 03/10/2019 07:50:10 Patient Details The patient is a 43 year-old male Event Personnel Lauren Hays RN RN, Arun Cortez Feather Mixer, Roxanne Arreguin RTR, SADIE Scrub, Analisa Cortes RTR Scrub, Eloise Hightower Monitor Procedures Performed Art Access - L femoral artery* Left Heart Cath w/or w/o Coronaries [id number] [facility] [address] w/wo Plasty Single LAD [id number] Initial Mod Sed Same Phys/QHP Gr5y 196605 60153 Mod Sed Same Phys/QHP Ea 296163 Hemostasis w/ Mynx Indication Chest pain Procedure Narrative The Left Groin^ was infiltrated with subcutaneous anesthesia. A PINNACLE 6FR TIF Sheath #[id number] sheath was inserted into the LFA^. Coronary angiography was performed using coronary diagnostic catheters. The right coronary system was accessed and visualized with a JR4 catheter. The left coronary system was accessed and visualized with a JL4 catheter. The left ventricle was accessed and visualized with a STR PIG catheter. The patient tolerated the procedure well and there were no complications associated with the procedure. There was no hematoma. Intraoperative Conscious Sedation Sedation start time: 814 Case end Time: 939 Fentanyl 25 mcg Versed 0.5 mg Fluoro Time: 6.13 minutes Dose: DAP 4347.70 cGycm2 582 mGy Contrast Type and Amount: Visipaque 50 ml Hemodynamics [facility] [place] [employer] [place] [address] INVASIVE PROCEDURE REPORT Name: NGOZI KELLYNY NEGRO Room #: 214-P [facility] IN M.R.#: [id number] Admission: 03/10/19 Attend Phys: Arun HeatherGamaliel Cortez, Discharge: 03/11/19 Date of : 71 Report #: [id number] The aortic pressure is 110/63 mmHg with a mean of 81 mmHg. The left ventricular pressure is 104/9 mmHg with a mean of mmHg. The left ventricular end diastolic pressure is 12 mmHg. PCI Technique Lesion Percutaneous coronary intervention was performed on the proximal left anterior descending artery segment. A LAUNCHER 6FR EBU 3.5 #[id number] Guide Catheter was used to engage the ostium. A Luge Wire .014 x 182CM #[id number] Interventional Guidewire was used to cross the lesion. BALLOON DILATION A Balloon catheter Sprinter OTW 2.5 x 25 #[id number] was inserted and inflated up to 12.00atm for 18seconds. STENT DEPLOYMENT A stent RESOLUTE CHRISTINE OTW 2.75 X 26 #[id number] was inserted and inflated up to 14.00atm for 21seconds. Additional Inflation: 16.00atm for 19seconds. Conclusion #1 successful PTCA stent of a long high-grade proximal LAD lesion then giving rise to a moderate distal disease LAD which wraps the apex. 95% to 0% with a 2.75 x 26 resolute drug-eluting stent 0% residual #2 small diffusely diseased diagonal system. No intervention #3 circumflex OM looks like a mid vessel stent possibly previously placed is mild in-stent restenosis giving rise to diffuse distal diseased vessels #4 dominant right high-grade mid vessel lesion then giving rise to totally occluded distal segment faint filling of the PDA via collateral filling Recommendations and plan: Continue aggressive risk factor modification continue dual antiplatelet therapy. There is really no other intervention indicated here either by bypass or stenting. There will be I suspect week improve recruitment of the anterior wall with improvement of this flow. Systolic pressure markedly improved after intervention. Patient transfer to CCU follow post stent protocol <ELECTRONICALLY SIGNED> By: Arun Cortez MD, [facility] 03/11/191655 55 55 Arun Cortez MD, FACC /INF
[2019-03-19] MEDS ORDERED: ASA81BEC PO (07:14)
[2019-03-19] MEDS ORDERED: JARDIANCE25 MG PO (07:18)
== END 2019-03-11 11:06 | disposition home or self-care (01) ==
LOC: CATH 06:20 → 2N 10:06 → CATH 13:51 → ENTRNSPT 03-11 10:51 → EDTRNSPTSTS 03-11 11:03 → 2N 03-11 11:06
PROVIDERS: ADMIT Internal Medicine Cardiovascular Disease
DX: I25.10 Atherosclerotic heart disease of native coronary artery without angina pectoris (principal); I10 Essential (primary) hypertension; E78.5 Hyperlipidemia, unspecified; I73.9 Peripheral vascular disease, unspecified; E11.9 Type 2 diabetes mellitus without complications

== ENCOUNTER → 2019-03-19 | Outpatient (CLI) | payer BC, OTHER ==
[~2019-03-19] VITALS: Ht 165.1 cm; Wt 79.4 kg
[~2019-03-19] MED LIST changes: +ASA81BEC PO; +JARDIANCE25 MG PO
[2019-03-19 06:56] VITALS: BP 98/57
[2019-03-19 07:39] LABS: HEMATOCRIT 37.7 % (42.0-52.0); HEMOGLOBIN 12.8 gm/dL (14.0-18.0); MCH 31.4 pg (26.0-34.0); MCHC 33.9 g/dL (28.0-37.0); MCV 92.7 fL (80.0-100.0); RBC 4.07 mil/uL (4.50-6.00); RDW 13.3 % (10.5-14.5); WBC 7.9 thou/uL (4.0-11.0)
[2019-03-19 07:52] LABS: CALCIUM 8.9 mg/dL (8.5-10.1); CREATININE 1.6 mg/dL (0.7-1.3); POTASSIUM 4.5 mmol/L (3.5-5.1)
== END | disposition home or self-care (01) ==
LOC: CATH 06:19 → CAT 14:46
PROVIDERS: Nuclear Medicine Nuclear Cardiology
DX: I70.238 Atherosclerosis of native arteries of right leg with ulceration of other part of lower leg (principal); I70.1 Atherosclerosis of renal artery; E11.51 Type 2 diabetes mellitus with diabetic peripheral angiopathy without gangrene; L97.919 Non-pressure chronic ulcer of unspecified part of right lower leg with unspecified severity; I11.0 Hypertensive heart disease with heart failure; I50.23 Acute on chronic systolic (congestive) heart failure; E78.5 Hyperlipidemia, unspecified; I25.10 Atherosclerotic heart disease of native coronary artery without angina pectoris; I25.5 Ischemic cardiomyopathy; F17.210 Nicotine dependence, cigarettes, uncomplicated; Z86.718 Personal history of other venous thrombosis and embolism; Z79.01 Long term (current) use of anticoagulants; I25.2 Old myocardial infarction; Z98.890 Other specified postprocedural states; Z79.899 Other long term (current) drug therapy; Z79.82 Long term (current) use of aspirin; Z79.4 Long term (current) use of insulin

== ENCOUNTER → 2019-06-17 | Outpatient (CLI) | payer BC, OTHER | LOC: SJCVCIMAG 10:44 | DX: I73.9 Peripheral vascular disease, unspecified (principal); Z87.891 Personal history of nicotine dependence ==

== ENCOUNTER → 2019-07-26 | Outpatient (CLI) | payer BC, OTHER | LOC: SJCVCIMAG 07:31 | DX: I45.10 Unspecified right bundle-branch block (principal); I11.0 Hypertensive heart disease with heart failure; I50.9 Heart failure, unspecified; I25.10 Atherosclerotic heart disease of native coronary artery without angina pectoris; E11.9 Type 2 diabetes mellitus without complications; Z87.891 Personal history of nicotine dependence; Z79.82 Long term (current) use of aspirin; Z79.899 Other long term (current) drug therapy ==

== ENCOUNTER → 2019-10-20 | Outpatient (CLI) | payer BC, OTHER | LOC: SJCVCIMAG 09:08 | PROVIDERS: ATTEND Nuclear Medicine Nuclear Cardiology | DX: I65.23 Occlusion and stenosis of bilateral carotid arteries (principal); I73.9 Peripheral vascular disease, unspecified; Z95.820 Peripheral vascular angioplasty status with implants and grafts ==

== ENCOUNTER → 2020-01-06 | Outpatient (CLI) | payer BC, OTHER | LOC: SJCVCIMAG 07:50 | PROVIDERS: ATTEND Internal Medicine Cardiovascular Disease | DX: I73.9 Peripheral vascular disease, unspecified (principal); M79.604 Pain in right leg; I25.5 Ischemic cardiomyopathy; I25.10 Atherosclerotic heart disease of native coronary artery without angina pectoris; E78.00 Pure hypercholesterolemia, unspecified; E11.9 Type 2 diabetes mellitus without complications; Z95.828 Presence of other vascular implants and grafts; Z87.891 Personal history of nicotine dependence ==